=== PATIENT | male | born 1965 | race Caucasian/White ===

== ENCOUNTER → 2017-09-03 | Outpatient (CLI) | payer BC ==
[~2017-09-03] MED LIST: FLUOCINONIDE15 G1 TOP; NEXIUM40 MG PO; TRIAMCINOLONE A15 G1 TOP
--- NOTE | 2017-09-03 14:58 | Diagnostic Imaging Report ---
PROCEDURE:US LIVER COMPARISON:None. INDICATIONS:Varices. TECHNIQUE: Rosen scale color Doppler ultrasound liver FINDINGS: Right liver span 17 cm. Nodular contour with increased parenchymal echogenicity. Portal vein diameter 1 cm; normal flow direction. Normal gallbladder. Wall thickness 3 mm. Common bile duct diameter 3 mm. Right superior pole simple renal cyst 6 x 5.5 x 5.2 cm. 0.9 x 0.7 x 1.1 cm inferior pole cyst containing milk of calcium. Otherwise, normal right kidney with a span of 12.7 cm. CONCLUSION: 1. Hepatomegaly with a nodular margin and increased echogenicity consistent with cirrhosis. 2. Normal gallbladder. 3. No ascites. Dictated by: Osmany Deras M.D. on 09/03/2017 at 15:07 Electronically approved by: Osmany Deras M.D. on 09/03/2017 at 15:07
[2017-09-03 15:26] LABS: BILIRUBIN,DIRECT 0.1 mg/dL (0.0-5.0)
== END ==
LOC: US 14:15
PROVIDERS: ATTEND Internal Medicine Gastroenterology
DX: I85.00 Esophageal varices without bleeding (principal)
CPT/HCPCS: 36415; 76705; 80076

== ENCOUNTER → 2018-08-19 | Outpatient (CLI) | payer BC ==
[~2018-08-19] MED LIST changes: +RANITIDINE HCL150 MG; +REVATIO20 MG PO; +VENLAFAXINE H37.5 M2 PO
--- NOTE | 2018-08-19 11:20 | Diagnostic Imaging Report ---
EXAM: Liver Ultrasound INDICATION: Hepatomegaly COMPARISON: None. TECHNIQUE: Transverse and longitudinal images of the right upper abdomen FINDINGS: Liver: Size: 17.1 cm in the right midclavicular line, enlarged Appearance: Normal echogenicity, smooth contour Mass: No focal masses Gallbladder: Unremarkable. No gallstones or sludge is seen. The sonographic Duong sign is negative. Bile Ducts: Intrahepatic Ducts: No dilatation Extrahepatic Ducts: Unremarkable. The common bile duct measures 0.3 cm Free Fluid: No ascites or pleural effusion The main portal vein is normal in appearance measuring 1.1 cm with normal blood flow. The right kidney measures 12.3 cm. There is a 5.2 x 6.3 x 5.4 cm right renal cyst and a 0.9 x 0.7 x 0.8 cm right renal cyst. Punctate echogenic foci are seen in the right kidney which could be due to small nonobstructing stones. The largest measures 0.5 cm. The pancreas is grossly unremarkable. The visualized abdominal aorta and inferior vena cava are grossly unremarkable. IMPRESSION: Hepatomegaly. No focal liver mass is seen. Simple appearing cysts in the right kidney. The largest measures 6.3 cm in maximal dimension Likely small nonobstructing right renal stones. The largest measures 0.5 cm. Signed by: Dr. Elmer Joseph M.D. on 08/19/2018 11:17 AM
== END ==
LOC: US 09:44
PROVIDERS: ATTEND Internal Medicine Gastroenterology
DX: R16.0 Hepatomegaly, not elsewhere classified (principal)
CPT/HCPCS: 76705

== ENCOUNTER → 2018-08-19 | Day surgery (SDC) | payer BC ==
[2018-08-09 13:48] LABS: BASOPHILS # (AUTO) 0.1 (0.0-0.1); BASOPHILS % 0.6 % (0.0-1.0); EOSINOPHILS # (AUTO) 0.2 (0.0-0.4); EOSINOPHILS % 2.6 % (0.0-6.0); HEMATOCRIT 53.3 % (38.2-49.6); LYMPHOCYTES # (AUTO) 1.2 (1.0-3.2); MEAN CORPUSCULAR HEMOGLOBIN 30.9 pg (28-32); MEAN CORPUSCULAR HGB CONC 33.8 g/dL (31-35); MEAN CORPUSCULAR VOLUME 91.6 fL (81-99); MONOCYTES # (AUTO) 0.7 (0.2-0.8); MONOCYTES % 9.1 % (4.4-11.3); NEUTROPHILS # (AUTO) 5.6 (2.1-6.9); NEUTROPHILS % 72.4 % (38.7-80.0); PLATELET COUNT 240 x10e3/uL (140-360); RED BLOOD COUNT 5.82 x10e6/uL (4.3-5.7); RED CELL DISTRIBUTION WIDTH 13.3 % (11.7-14.4)
[2018-08-09 14:01] LABS: INR 0.88; PROTHROMBIN TIME 12.8 seconds (11.9-14.5)
[2018-08-09 14:09] LABS: ALANINE AMINOTRANSFERASE 21 IU/L (0-55); ALBUMIN/GLOBULIN RATIO 1.3 (0.8-2.0); ALKALINE PHOSPHATASE 86 IU/L (40-150); ANION GAP 12.7 mmol/L (8-16); BLOOD UREA NITROGEN 12 mg/dL (7-26); BUN/CREATININE RATIO 11 (6-25); CALCIUM 9.7 mg/dL (8.4-10.2); CARBON DIOXIDE 30 mmol/L (22-29); CHLORIDE 104 mmol/L (98-107); CREATININE, SERUM 1.06 mg/dL (0.72-1.25); EST GLOMERULAR FILTRATION RATE > 60 ML/MIN (60-); GLUCOSE 97 mg/dL (74-118); POTASSIUM 4.7 mmol/L (3.5-5.1); SODIUM 142 mmol/L (136-145)
--- OUTSIDE RECORDS SUMMARY | 2018-08-10 08:10 | XMS REPORT ---
[facility] Address Unknown Phone Unavailable Care Team Providers Care Workers' Compensation Mediator Name Role Phone SEBAS MICHAEL Unavailable Unavailable Problems This patient has no known problems. Allergies, Adverse Reactions, Alerts This patient has no known allergies or adverse reactions. Medications This patient has no known medications. Results Test Description Test Time Test Comments Text Results Atomic Results Result Comments LIVER [place] [address] Patient Name: HEYDI KENT M MR #: [id number] : 1965 Age/Sex: 52/M Req #: [id number] [facility] Physician: Ordered by: SEBAS MICHAEL MD Report #: [id number] Location: US Room/Bed: Procedure: [id number] US/US LIVER Exam Date: 09/03/17 Exam Time: 1429 REPORT STATUS: Signed PROCEDURE: US LIVER COMPARISON: None. INDICATIONS: Varices. TECHNIQUE: Rosen scale color Doppler ultrasound liver FINDINGS: Right liver span 17 cm. Nodular contour with increased parenchymal echogenicity. Portal vein diameter 1 cm; normal flow direction. Normal gallbladder. Wall thickness 3 mm. Common bile duct diameter 3 mm. Right superior pole simple renal cyst 6 x 5.5 x 5.2 cm. 0.9 x 0.7 x 1.1 cm inferior pole cyst containing milk of calcium. Otherwise, normal right kidney with a span of 12.7 cm. CONCLUSION: 1. Hepatomegaly with a nodular margin and increased echogenicity consistent with cirrhosis. 2. Normal gallbladder. 3. No ascites. Dictated by: Luna Deras M.D. on 09/03/2017 at 15:07 Electronically approved by: Luna Deras M.D. on 09/03/2017 at 15:07 Dictated By: LUNA DERAS MD [id number] Transcribed By: HENRY on 09/03/17 1507 COPY TO: SEBAS MICHAEL MD
[~2018-08-19] MED LIST changes: +FENTANYL CITRATE/PF 100MCG/2 ML INJ ONE; +LIDOCAINE HCL 2% LOCAL INJ 5 ML SDV VIAL INJ ONE; +PROPOFOL IV EMULSION 10 MG/ML 20 ML VIAL ONE
[2018-08-19 15:45] VITALS: BP 140/90
--- NOTE | 2018-08-19 15:55 | Operative Report ---
DATE OF PROCEDURE: August 19, 2018 REFERRING PHYSICIAN: Dr. Luna Virgen PROCEDURE PERFORMED: Esophagogastroduodenoscopy. INDICATIONS FOR PROCEDURE: History of acid reflux. MEDICATION: Patient was done under MAC. Please see anesthesiologist's note. PROCEDURE: With the patient in the left lateral decubitus position, the flexible fiberoptic Olympus gastroscope was introduced into the esophagus under direct visualization without any difficulty. There was some patchy erythema noted in the distal esophagus. Grade 1 esophageal varices were noted. There was no active bleeding or stigmata of recent hemorrhage. The scope was then advanced with ease into the stomach. The mucosa overlying the antrum and the body revealed some diffuse erythema and low-grade to moderate edema, and biopsies were obtained. The pylorus was of normal contour and shape. It was intubated with ease. The scope was advanced all the way to the 2nd portion of the duodenum. The scope was then withdrawn slowly. Mucosa overlying the proximal 2nd portion and the duodenal bulb grossly appeared to be within normal limits. The scope was then withdrawn back into the stomach and retroflexed. The mucosa overlying the fundus and cardia appeared to be within normal limits. The scope was then straightened out. It was subsequently withdrawn. Patient tolerated the procedure well. IMPRESSION 1. Distal esophagitis, mild. 2. Grade 1 esophageal varices. 3. Gastritis. PLAN: Follow up histology. Initiate Protonix 40 mg 1 p.o. q.a.m. a.c. Continue Zantac 150 mg p.o. at bedtime. Job#: [id number] RI cc: LUNA VIRGEN MD
== END | disposition home or self-care (01) ==
LOC: ENDO 08-10 08:07
PROVIDERS: ATTEND Internal Medicine Gastroenterology
DX: K74.60 Unspecified cirrhosis of liver (principal); I85.10 Secondary esophageal varices without bleeding; K29.70 Gastritis, unspecified, without bleeding; K20.9 Esophagitis, unspecified; K21.9 Gastro-esophageal reflux disease without esophagitis; Z88.6 Allergy status to analgesic agent; Z88.8 Allergy status to other drugs, medicaments and biological substances; Z01.810 Encounter for preprocedural cardiovascular examination; Z01.812 Encounter for preprocedural laboratory examination
CPT/HCPCS: 36415; 43239; 80053; 85025; 85610; 85730; 93005; J2001; J2704